=== PATIENT | female | born 1980 | race Caucasian/White ===

== ENCOUNTER 2020-02-13 05:36 | Observation (INO) ==
--- NOTE | 2020-01-20 10:32 | PAT Medication Instructions ---
Medication Instructions Date of Service January 20, 2020 Home Medications citalopram 40 mg PO QAM levothyroxine 50 mcg PO QAM Take morning of surgery With a small sip of water, OTHERWISE NOTHING TO EAT OR DRINK AFTER MIDNIGHT: citalopram 40 mg PO QAM levothyroxine 50 mcg PO QAM Other Notes If you have any questions please call us at [phone] or [phone] or [phone] or [phone]
--- NOTE | 2020-01-20 12:33 | Anesthesiology Consultation ---
Date of Service January 20, 2020 Assessment & Plan (1) Encounter for pre-operative examination: COVID Status: As of 01/19 assessment, patient denies travel to endemic area, known exposure/sick contacts, or symptoms of COVID19. Patient instructed that they and their household members must follow strict social distancing guidelines, wear a mask in public and avoid travel for 14 days prior to surgery. Preoperative COVID19 testing to be completed prior to surgery per surgeon's arrangements. Patient made aware to self-isolate as much as possible between COVID testing and surgery. HCG AM DOS Chart Review Chart Review: Acceptable Risk for Surgery and Patient seen in Pre Admission Testing Teaching & Discussion Instructed NPO after midnight before surgery, except medications with 15 cc of water. Medication instructions provided according to the PAT guidelines. History Surgery Operation Date: 02/13/20 11:00 Proposed Procedures p Laparoscopic Hysterectomy, Bilateral Salpingectomy, Cystoscopy, Possible Laparotomy - Orlando Hay MD Height/Weight Height: 5 ft 3 in Weight: 54.5 kg Allergies Allergy/AdvReac Type Severity Reaction Status Date / Time No Known Allergies Allergy Verified 01/14/20 13:23 Medications Home Medications Medication Instructions Recorded Confirmed Last Taken citalopram 40 mg PO QAM 01/14/20 01/14/20 Unknown levothyroxine 50 mcg PO QAM 01/14/20 01/14/20 Unknown Past Medical History Medical History Anxiety History of uterine fibroid Hypothyroidism Menorrhagia Migraine TMJ (temporomandibular joint disorder) Clicking, sore occasionally. Has never locked. Exercise / Class Metabolic Activity 1 > 8 Run/Swim/Ski/Tennis Past Family History Family History Other No family history of adverse response to anesthesia Past Surgical History Surgical History History of section History of D&C x 2 History of esophageal dilatation History of esophagogastroduodenoscopy (EGD) History of tonsillectomy History of tubal ligation Past Anesthesia History No Hx of Anesthesia Complications and No Family Hx of Anesthesia Complications History of PONV No Hx of PONV and No Hx of Motion Sickness Social History Smoking Status: Former smoker Do You Dip or Chew Tobacco: No Smoking End Date: 01/2017 Hx Alcohol Use: No Hx Substance Use: No substance use type: does not use Review of Systems Pt denies any recent chest pain, shortness of breath, palpitations, cough, fever, URI, or uncontrolled acid reflux. Physical Exam Vital Signs BP: 116/69 P: 61bpm SPO2: 100% RA T: 98.5 F R: 12 ENMT Mouth: + dentures (partial upper); no chipped teeth and no loose teeth Thyromental Distance: < 3.5 Finger Breadths (3) Mallampati Class: I Neck normal visual inspection; neck extension not limited Respiratory normal respiratory effort Auscultation: lungs clear to auscultation bilaterally Cardiovascular Rate/Rhythm: regular rate and regular rhythm Heart Sounds: no murmur Extremities: no edema Testing Laboratory Results 01/20/20 12:34 01/20/20 12:34 Blood Type O Positive 01/20/20 12:34 Antibody Screen NEGATIVE 01/20/20 12:34
[2020-01-20 13:17] LABS: Basophils # (auto) 0.07 K/uL (0-0.2); Basophils % (auto) 1.4 %; Eosinophils # (auto) 0.14 K/uL (0-0.5); Eosinophils % (auto) 2.9 %; Hematocrit (blood only) 36.7 % (37-47); Hemoglobin 11.7 g/dL (12.0-16.0); Immature Granulocytes # (auto) 0.01 K/uL (0.00-0.02); Immature Granulocytes % (auto) 0.2 %; Lymphocytes # (auto) 1.45 K/uL (1.2-3.4); Lymphocytes % (auto) 29.7 %; Mean Corpuscular Hemoglobin 27.2 pg (25-34); Mean Corpuscular Hgb Conc 31.9 g/dL (32-36); Mean Corpuscular Volume 85.3 fL (80-100); Mean Platelet Volume 9.8 fL (7.4-10.4); Monocytes # (auto) 0.45 K/uL (0.11-0.59); Monocytes % (auto) 9.2 %; Neutrophils # (auto) 2.76 K/uL (1.4-6.5); Neutrophils % (auto) 56.6 %; Platelet Count 336 K/uL (130-400); RDW Coefficient of Variation 14.9 % (11.5-14.5); RDW Standard Deviation 46.3 fL (36.4-46.3); White Blood Count 4.88 K/uL (4.8-10.8)
[2020-01-20 13:45] LABS: Albumin Level 3.7 gm/dl (3.4-5.0); BUN Creatinine Ratio 11.8 (10-20); Calcium 8.5 mg/dl (8.5-10.1); Creatinine Clr Calc Pharmacy 89.3 ml/min; Est GFR (African American) 126.5; Est GFR (Non-African American) 109.1; Potassium 3.6 mmol/L (3.5-5.1)
[2020-01-20 13:47] LABS: Bilirubin,Total 0.7 mg/dl (0.2-1); Globulin 3.6 gm/dl (2.5-4.0); Total Protein 7.3 gm/dl (6.4-8.2)
--- OUTSIDE RECORDS SUMMARY | 2020-02-13 05:39 | External Medical Summary | Continuity of Care Document ---
:1980 Author Name Tram Limon Address Unavailable Unavailable , Care Team Providers Name Role Phone Unavailable Unavailable Unavailable Chris Ferguson M.D. Unavailable [email or web address] ROLANDO Limon, S Unavailable Unavailable Unavailable Unavailable Unavailable Problems Classic migraine with aura (346.00) (G43.109) Asthmatic bronchitis (493.90) (J45.909) Depression with anxiety (300.4) (F41.8) Allergies and Adverse Reactions No Known Drug Allergies (Allergy) Medications Xopenex HFA 45 MCG/ACT Inhalation Aeroso l; INHALE 2 PUFFS EVERY 4 HOURS NEEDED , M.D. 15 GM Inhaler Quantity: 1 Refills: 11 Imitrex Braxton JENSEN Refills: 0 Asmanex (30 Metered Doses) 110 MCG/INH I nhalation Aerosol Powder Breath Activated; INHALE 2 PUFFS Daily Braxton Ferguson Start: 03-Feb-2013 Quantity: 2 1 EA Inhaler Refills: 11 Procedures Procedures not documented Immunizations Immunizations not documented Social History - Smoking Status Ex-smoker Plan of Treatment Planned Observations Planned Goals not documented Results No Known Results Results not documented
[2020-02-13] MEDS ORDERED: LACTATED RINGER'S 1,000 ML IV SCH ×2 (06:00→11:30)
[2020-02-13] MEDS ORDERED: LR 15ML/HR IV SCH (06:00)
[2020-02-13] MEDS ORDERED: CEFAZOLIN 2000MG 2,000 MG/15 ML SYR IV SCH (06:00)
[2020-02-13] MEDS ORDERED: ePHEDrine sulfate 50 MG/ML AMP IV PRN (06:34)
[2020-02-13] MEDS ORDERED: fentaNYL citrate 100 MCG/2 ML VIAL IV PRN (06:34)
[2020-02-13] MEDS ORDERED: ATROPINE SULFATE 0.1 MG/ML 10ML SYR IV PRN (06:34)
[2020-02-13] MEDS ORDERED: ONDANSETRON INJ 2 MG/ML 2 ML VIAL IV PRN ×2 (06:34→11:22)
[2020-02-13] MEDS ORDERED: ROCURONIUM BROMIDE 10 MG/ML 5 ML VIAL IV ONE (06:41)
[2020-02-13] MEDS ORDERED: MIDAZOLAM HCL 1 MG/ML 2ML VIAL ONE (06:41)
[2020-02-13] MEDS ORDERED: PROPOFOL IV EMULSION 10 MG/ML 20 ML VIAL IV ONE (06:41)
[2020-02-13] MEDS ORDERED: ONDANSETRON INJ 2 MG/ML 2 ML VIAL ONE (06:41)
[2020-02-13] MEDS ORDERED: LIDOCAINE HCL 2% 2 ML VIAL/AMP(20MG/ML) INFIL ONE (06:41)
[2020-02-13] MEDS ORDERED: fentaNYL citrate 100 MCG/2 ML VIAL ONE ×2 (06:42→08:21)
--- NOTE | 2020-02-13 06:50 | History & Physical Bridge Note ---
Date of Service February 13, 2020 History & Physical Bridge Note I have examined the patient, reviewed the History & Physical and in the interval since the performance of the History & Physical I have noted the following changes of clinical significance: no changes noted
[2020-02-13] MEDS ORDERED: BUPIVACAINE 0.5 % 5 MG/1 ML MPF 30ML VIAL ONE (06:58)
[2020-02-13] MEDS ORDERED: DEXAMETHASONE SOD INJ 4 MG/ML VIAL ONE (07:40)
[2020-02-13] MEDS ORDERED: NEOSTIGMINE METHYLSULFATE 5 MG/5 ML SYR ONE (07:51)
[2020-02-13] MEDS ORDERED: GLYCOPYRROLATE 0.2 MG/ML VIAL ONE (07:51)
--- NOTE | 2020-02-13 08:41 | Operative Report ---
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 Upon arrival, appropriate antibiotics and anesthesia were administered and the patient was placed in dorsal lithotomy position and prepped and draped in sterile fashion. To begin the case we passed a 22 Georgian cystoscope with 30 degree lens. Inspection revealed healthy appearing bladder mucosa. We immediately identified the left ureteral orifice as well as the right ureteral orifice. Just in front of the right ureteral orifice there was a mounded amount of tissue and a slight divot raising the question of a possible complete duplication of the right ureter. We first intubated the easily identified right ureter and advanced a ureteral catheter to 20 cm. We then left that in place and placed a similar catheter on the left-hand side. We then turned our attention back to this extra digit on the right side. I was able to successfully intubated with a sensor wire and a 5 Georgian open-ended catheter and again position this catheter to 20 cm. 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 A Smiley catheter was placed and all the catheters were secured together utilizing an umbilical tape and a Meeks urinary diversion kit. The patient was straight stable to proceed with the planned laparoscopy. I attest to the content of the Intraoperative Record and any orders documented therein. Any exceptions are noted below.
[2020-02-13] MEDS ORDERED: FLOSEAL HEMOSTATIC MATRIX 10ML TOP ONE (09:27)
--- NOTE | 2020-02-13 11:25 | Post Operative Brief Note ---
Immediate Post Op Note v1 Date of Surgery February 13, 2020 Pre & Post Diagnosis Operation Date: 02/13/20 07:00 Pre-Op Diagnosis: Fibroid Uterus,Menorrhagia, Failed Endometrial Ablation Post-Op Diagnosis: Fibroid Uterus,Menorrhagia, Failed Endometrial Ablation I identified the patient and participated in the time-out.: Yes Procedure Operation Date: 02/13/20 07:00 Actual Procedures p Cystoscopy, Bilateral Stent Insertion (Bilateral) - Carlos Alberto Carrasco MD s Laparoscopic Hysterectomy, Bilateral Salphingectomy, Cystoscopy(Not Applicable) - Orlando Hay MD Surgeon Orlando Hay MD Bible Teacher none Estimated Blood Loss 50 Findings Consistent with Post-Op Diagnosis Drains Smiley Catheter
--- NOTE | 2020-02-13 12:12 | Anesthesiology Progress Note ---
Date of Service February 13, 2020 Anesthesia Post Procedure Vital Signs Vital Signs: Temp Pulse Pulse Resp BP Pulse Ox 02/13/20 11:35 78 16 101/55 L 99 02/13/20 11:25 97.7 F 89 15 102/51 L 100 02/13/20 11:15 87 14 108/53 L 99 02/13/20 11:05 75 15 102/41 L 100 02/13/20 10:56 97.0 F L 108 H 16 110/58 L 100 02/13/20 06:09 98.2 F 60 20 119/69 94 Transfer of Care Handoff Completed per policy Notes Mental Status: alert / awake / arousable and participated in evaluation Patient Amnestic to Procedure: Yes Nausea / Vomiting: adequately controlled Pain: adequately controlled Airway Patency, RR, SpO2: stable & adequate BP & HR: stable & adequate Hydration State: stable & adequate Anesthetic Complications: no major complications apparent and Pt Satisfied with anesthetic care
[2020-02-13] MEDS: IBUPROFEN 600 MG TAB PO PRN ×3 (12:14→23:24)
[2020-02-13] MEDS: OXYCODONE/ACETAMINOPHEN 5mg/325mg TAB PO PRN ×3 (12:15→23:23)
[2020-02-14] MEDS: OXYCODONE/ACETAMINOPHEN 5mg/325mg TAB PO PRN ×3 (04:05→12:30)
[2020-02-14] MEDS: IBUPROFEN 600 MG TAB PO PRN ×3 (04:05→12:30)
[2020-02-14] MEDS ORDERED: OXYMETAZOLINE 0.05% 30 ML BTL ONE (07:16)
[2020-02-14 10:23] LABS: Basophils # (auto) 0.03 K/uL (0-0.2); Basophils % (auto) 0.5 %; Eosinophils # (auto) 0.13 K/uL (0-0.5); Eosinophils % (auto) 2.2 %; Hematocrit (blood only) 30.5 % (37-47); Hemoglobin 9.6 g/dL (12.0-16.0); Immature Granulocytes # (auto) 0.01 K/uL (0.00-0.02); Immature Granulocytes % (auto) 0.2 %; Lymphocytes # (auto) 1.33 K/uL (1.2-3.4); Lymphocytes % (auto) 22.6 %; Mean Corpuscular Hemoglobin 28.1 pg (25-34); Mean Corpuscular Volume 89.2 fL (80-100); Mean Platelet Volume 9.8 fL (7.4-10.4); Monocytes # (auto) 0.55 K/uL (0.11-0.59); Monocytes % (auto) 9.3 %; Neutrophils # (auto) 3.84 K/uL (1.4-6.5); Neutrophils % (auto) 65.2 %; Platelet Count 259 K/uL (130-400); RDW Coefficient of Variation 16.3 % (11.5-14.5); RDW Standard Deviation 53.8 fL (36.4-46.3); Red Blood Count 3.42 M/uL (4.2-5.4); White Blood Count 5.89 K/uL (4.8-10.8)
[2020-02-14 10:40] LABS: Albumin Level 2.6 gm/dl (3.4-5.0); BUN Creatinine Ratio 10.3 (10-20); Calcium 7.5 mg/dl (8.5-10.1); Creatinine Clr Calc Pharmacy 85.6 ml/min; Est GFR (African American) 120.2; Est GFR (Non-African American) 103.7; Potassium 3.6 mmol/L (3.5-5.1)
[2020-02-14 10:42] LABS: Mean Corpuscular Hgb Conc 31.5 g/dL (32-36)
[2020-02-14 10:43] LABS: Albumin Globulin Ratio 0.9 (0.9-2); Bilirubin,Total 0.4 mg/dl (0.2-1); Total Protein 5.6 gm/dl (6.4-8.2)
--- NOTE | 2020-02-14 11:38 | Gynecologic Progress Note ---
Date of Service February 14, 2020 Assessment & Plan Admission and Anticipated Discharge Date Admission Date: February 13, 2020 Subjective Pt doing well s/p TIP, Bilat stent placement and removal, cystoscopy Day pt doing well d/c home with instructions Results & Data ([facility]) Vital Signs (Past 12 Hours) Vital Signs Temp Pulse Resp BP Pulse Ox 02/14/20 08:50 36.7 C 77 16 102/47 L 98 02/14/20 04:05 37.0 C 88 16 88/54 L 97
--- NOTE | 2020-02-14 15:47 | Operative Report (OR) ---
DATE OF OPERATION: 02/13/2020 INDICATION FOR PROCEDURE: This is a 40-year-old with menorrhagia and fibroid uterus. The patient has had a failed endometrial ablation and is scheduled to undergo total laparoscopic hysterectomy. PREOPERATIVE DIAGNOSES: Fibroid uterus, failed endometrial ablation. POSTOPERATIVE DIAGNOSES: Fibroid uterus, failed endometrial ablation. PROCEDURE: 1. Cystoscopy with bilateral stent placement by Dr. Barksdale. He will dictate his part of the procedure. 2. Total laparoscopic hysterectomy with bilateral salpingectomy and cystoscopy. SURGEON: Orlando Hay MD. SLAB INSTALLER: ALEKSANDAR Sharif. ATTESTATION FOR SLAB INSTALLER: Vegetable Sorter's presence was necessary throughout the procedure for uterine manipulation and retraction, handling of the laparoscope and laparoscopic instruments to ensure adequate visualization and gentle tissue manipulation and hemostasis. ESTIMATED BLOOD LOSS: 50 mL. IV FLUIDS: 1300 mL URINE OUTPUT: 50 mL clear urine at end of procedure. COMPLICATIONS: None. DRAINS: Smiley catheter. PATHOLOGY: Uterus and cervix. ANESTHESIA: General. FINDINGS: Normal female escutcheon. No lesions in the vagina or cervix. Cystoscopy showed the patient had 2 ureters on the left duplicating system and 1 ureter on the right. Bladder otherwise was unremarkable. Abdominal findings about 8 weeks' size uterus, both ovaries appeared grossly normal. The patient had history of prior section and had blood adherent to the anterior part of the uterus. Bowels were otherwise unremarkable. Rest of the pelvic exam were unremarkable. Both left and right fallopian tube could be identified. The patient had prior tubal ligation. This was also evident, but both fimbriated ends were easily identified. Both ovaries were also identified. Bowel cecum and appendix otherwise appeared grossly normal. There were no other adhesions of the bowel and the abdomen. As stated earlier, except for the thickened adhesions of the bladder to the anterior part of the uterus, the pelvis was otherwise unremarkable. The patient was taken to the operating room where she was prepped and draped in normal sterile fashion in dorsal lithotomy position. Urology had earlier placed stents into the patient's bladder, with the Smiley catheter. A weighted speculum was placed into the vagina. Inman retractor was used to retract the anterior part of the cervix. HUMI uterine manipulator was placed into the uterus size was 3.5. This was placed without difficulty. Attention was paid to the abdominal part of the procedure where an infraumbilical incision was made with scalpel. Dash's were used to identify the fascia and grabbed. Veress needle was introduced into the abdomen at a 45-degree angle while tenting up the abdomen. Intraabdominal placement was confirmed with a water-filled syringe. The abdomen was insufflated with 3.5 liters of CO2. Veress needle was removed. A size 10 trocar was placed into the abdomen with a laparoscope. This was a nonbladed trocar that was placed under direct visualization. Once inside the abdomen, laparoscope was repositioned. Three accessory ports were placed, 2 on the left side of the patient and the third on the right. These were all done under direct visualization. The patient was placed in Trendelenburg position. Bowel was moved out of the operating pelvis. A 5 mm LigaSure was passed through the left accessory port. The uterus was retroverted and at 5 o'clock position traction was provided by the technology assistant. The left fallopian tube was identified again and grabbed about 4 cm from the cornua of the uterus with the LigaSure and transected. This was followed by opening of the left anterior leaf of the broad ligament. Once that was performed it allowed for fenestration of the posterior leaf of the broad ligament to mid section of the left fallopian tube, uteroovarian and medial ovarian pedicles were transected as well using the LigaSure. There was good hemostasis. Same procedure was performed on the contralateral side on the right. The anterior broad ligament dissection was carried to the mid section of the vesicouterine peritoneum with the bladder using the Harmonic scalpel. Same procedure was carried out from the contralateral side. The posterior broad ligament peritoneum was carefully dissected also from both sides of the uterosacral arch in order to displace the ureters laterally. Using traction and countertraction, the Maryland retractor and irrigation probe was used to further dissect the bladder off the lower segment of the uterus. The bladder pillars and pubovesical fascia were carefully dissected as well. The Harmonic scalpel was used to obtain hemostasis when needed. Uterine manipulator could not be palpated over the vaginal tissue. The right uterine pedicle was skeletonized and coagulated with LigaSure. There was good hemostasis. Same procedure was performed on the contralateral side. The cardinal ligaments identified and transected on both sides. Once again, hemostasis was obtained. Colpotomy was then performed using the Harmonic scalpel from both sides. Uterus was removed through the vagina while still attached to the uterine manipulator. The bulb attached to the uterine manipulator was reinserted into the vagina to establish pneumoperitoneum. With the grasper, the remaining section of the left fallopian tube and ovary inspected and identified. There was good hemostasis. The fallopian tube was carefully dissected of the infundibulopelvic using the LigaSure. Same procedure was performed on the contralateral side. An EndoStitch suture closing device was passed through the 10 mm port on the left side and using the Maryland grasper for retraction. The colpotomy closure was performed. The uterosacral ligaments incorporated into the closure in order to decrease the risks of prolapse, Lapra-Ty were used with the EndoStitch. Copious amount of irrigation was used to irrigate the abdomen and pelvis. Attention was paid to the cystoscopy part of the procedure where a 30-degree cystoscope was introduced into the bladder. All 3 stents removed. All 3 ureteral orifices were identified and urine was seen jetting out of the urethra openings. The cystoscope was removed and a Smiley catheter was placed into the patient's bladder. The abdominal side incisions were closed, the 10 mm ports were closed, first by using a Vicryl stitch to close the fascia. The 5 mm ports, however, closed with 4-0 Monocryl in the skin. All instruments were counted for and removed from the abdomen and vagina x2. The patient was sent to recovery in stable condition. I attest to the content of the Intraoperative Record and any orders documented therein. Any exception s are noted below.
--- NOTE | 2020-02-28 00:35 | Discharge Summary (DS) ---
CHIEF COMPLAINT/ADMITTING DIAGNOSES: 1. Menorrhagia. 2. Fibroid uterus. HISTORY OF PRESENT ILLNESS: This is a 40-year-old G2, P2 with menorrhagia and fibroid uterus. The patient underwent total laparoscopic hysterectomy, bilateral salpingectomy with ureteral stent at [facility] on 02/13/2020. Surgery was unremarkable. The patient did well, met all milestones in recovery. She was discharged home the next day in stable condition. PAST MEDICAL HISTORY: History of anxiety, fibroid uterus and menorrhagia. SOCIAL HISTORY: The patient is , lives with spouse and children. PAST SURGICAL HISTORY: The patient has had sections and D&Cs as well as tonsillectomy and 2 ablations in the past. ALLERGIES: No known drug allergies. REVIEW OF SYSTEMS: Is unremarkable, except as dictated above. LABS: At time of discharge, hemoglobin is 9.6, hematocrit is 30.0, platelets is 259. PHYSICAL EXAMINATION: VITAL SIGNS: On day of discharge, temperature was 37.5, pulse was 92, blood pressure is 102/47. HEART: S1, S2, regular rhythm and rate. LUNGS: Clear to auscultation bilaterally. ABDOMEN: Nontender, nondistended. Incision is clean, dry and intact. EXTREMITIES: No cyanosis, clubbing or edema. CONDITION ON DISCHARGE: Stable. OPERATION: Total laparoscopic hysterectomy with bilateral salpingectomy, cystoscopy, bilateral stent placement. DISCHARGE DIAGNOSES: Postop for total laparoscopic hysterectomy with cystoscopy and bilateral stent placement. PLAN ON DISCHARGE: The patient is discharged home with instructions regarding activity, diet and followup appointment.
== END 2020-02-14 13:03 | disposition home or self-care (01) ==
LOC: 4N 05:36 → ASU 05:36 → MERGE 11:00

== ENCOUNTER 2020-02-25 12:23 | Inpatient (IN) ==
[2020-02-25] MEDS ORDERED: Nursing to Pharmacy Communication SCH (15:00)
[2020-02-25] MEDS ORDERED: KETOROLAC TROMETHAMINE 15 MG/ML VIAL IV PRN (15:15)
[2020-02-25] MEDS ORDERED: ACETAMINOPHEN 325 MG TAB PO PRN (15:15)
[2020-02-25 15:54] LABS: Basophils # (auto) 0.04 K/uL (0-0.2); Basophils % (auto) 0.3 %; Eosinophils # (auto) 0.22 K/uL (0-0.5); Eosinophils % (auto) 1.7 %; Hematocrit (blood only) 32.7 % (37-47); Hemoglobin 10.9 g/dL (12.0-16.0); Immature Granulocytes # (auto) 0.02 K/uL (0.00-0.02); Immature Granulocytes % (auto) 0.2 %; Lymphocytes # (auto) 1.32 K/uL (1.2-3.4); Lymphocytes % (auto) 10.1 %; Mean Corpuscular Volume 84.1 fL (80-100); Mean Platelet Volume 9.3 fL (7.4-10.4); Monocytes % (auto) 5.4 %; Neutrophils # (auto) 10.75 K/uL (1.4-6.5); Neutrophils % (auto) 82.3 %; Platelet Count 409 K/uL (130-400); RDW Coefficient of Variation 15.2 % (11.5-14.5); RDW Standard Deviation 46.9 fL (36.4-46.3); Red Blood Count 3.89 M/uL (4.2-5.4); White Blood Count 13.05 K/uL (4.8-10.8)
[2020-02-25 15:56] LABS: Mean Corpuscular Hgb Conc 33.3 g/dL (32-36)
[2020-02-25] MEDS: SODIUM CHLORIDE 0.9% 1000ML 1,000 ML IV SCH (16:06)
[2020-02-25 16:17] LABS: BUN Creatinine Ratio 18.9 (10-20); Calcium 8.8 mg/dl (8.5-10.1); Creatinine Clr Calc Pharmacy 104.1 ml/min; Est GFR (African American) 133.1; Est GFR (Non-African American) 114.8; Potassium 3.7 mmol/L (3.5-5.1)
--- NOTE | 2020-02-25 16:27 | History & Physical Report ---
Date of Service February 25, 2020 Assessment & Plan (1) Vaginal cuff cellulitis: 40 yo with post-operative pain. s/p TLH/BS/Intraoperative urethral stents/Cystoscopy on 02/13/[address] Hay. Possible vaginal cuff cellulitis vs post-hysterectomy pelvic abscess. Admit to L&D. Labs, CT Abd/Pelvis, IVF, IV antibiotics and pain medication ordered. Present on Admission?: Yes Admission and Anticipated Discharge Date Admission Date: February 25, 2020 History of Present Illness Chief Complaint: Post-operative pain Primary Care Provider: Varun Smiley MD The patient is a 40 year old who presented today in [facility] with acute post-operative pain. The patient is s/p a total laparoscopic hysterectomy, bilateral salpingectomy and cystoscopy on 02/13/[address] Hay. Intraoperative urethral stents were also placed by Dr. Carrasco. The patient states that three days ago she started having severe, sharp abdominal pain with radiation to the back. Pain is suprapubic and constant. Pain with ever y position. Pain is sharp. Pain is taking 2 motrin daily with no relief of symptoms. Patient also endorses a ramos vaginal discharge. Denies vaginal odor or vaginal itching. Endorses dysuria. Denies urinary urgency, urinary frequency, or urinary incontinence. Endorses pain with defecation (last bowel movement this morning). +Nausea. Denies vomiting. Patient reports feeling feverish yesterday, but no elevated temperature recorded today in [facility]. Denies SOB or CP. Allergies Allergy/AdvReac Type Severity Reaction Status Date / Time No Known Allergies Allergy Verified 02/13/20 06:03 Home Medications Home Medications Medication Instructions Recorded Confirmed Type citalopram [Celexa] 40 mg PO QAM 01/14/20 02/13/20 History levothyroxine 50 mcg PO QAM 01/14/20 02/13/20 History ibuprofen 600 mg PO Q4H #20 tab 02/14/20 Rx oxycodone-acetaminophen [Percocet] 1 - 2 tab PO Q4H #20 tab 02/14/20 Rx Patient History Medical History (Updated 02/25/20 @ 16:24 by Tika Lester) Anxiety History of uterine fibroid Hypothyroidism Menorrhagia Migraine Spontaneous pneumothorax TMJ (temporomandibular joint disorder) Clicking, sore occasionally. Has never locked. Surgical History History of section History of D&C x 2 History of esophageal dilatation History of esophagogastroduodenoscopy (EGD) History of tonsillectomy History of tubal ligation Family History Other No family history of adverse response to anesthesia Social History (System 01/12/20 @ 08:23 by Tasha Gee) Smoking Status: Never smoker Second Hand Exposure: No; Do You Dip or Chew Tobacco: No; Hx Alcohol Use: No Hx Substance Use: No Preferred Language: Chadian Communication Ability: Effective Can Cutter Required: No Beliefs That Will Affect Care: None Current Living Situation: Spouse and Family Other Information That Helps Us Care for You: No Feels Safe at Home: Yes Safety Concerns: Feels Safe At This Time Review of Systems All systems reviewed & are unremarkable except as noted in HPI & below Physical Exam Constitutional: WD/WN, vitals as above + acute distress Respiratory: normal respiratory effort, lungs clear to auscultation Cardiovascular: RRR, no murmur, no edema Gastrointestinal (Abdomen): Inspection/Auscultation: normal bowel sounds Pe rcussion/Palpation: + abdomen tender, + guarding and abdomen soft Musculoskeletal: no cyanosis or clubbing, extremities motor strength 5/5 Genitourinary: Pelvic Exam: External- normal anatomy. Vagina-pink and rugated and queen appearing vaginal discharge, no odor. Vaginal cuff intact with granulation tissue. Silver nitrate applied. No palpable or visible sutures. Tender to palpation. Cervix- surgically absent. Uterus-surgically absent. Adnexa-tender bilaterally. Rectal-deferred. Results & Data ([facility]) Vital Signs (Past 12 Hours) Vital Signs Temp Pulse Resp BP 02/25/20 15:41 37.5 C 92 H 16 108/73
[2020-02-25 16:33] LABS: Appearance Urine Clear (Clear); Bacteria Urine Automated Negative (Negative); Bilirubin Urine Negative (Negative); Blood Urine Trace (Negative); Color Urine Yellow; Glucose Urine UA Negative (Negative); Ketones Urine Negative (Negative); Leukocyte Esterase Urine Negative (Negative); Nitrite Urine Negative (Negative); Protein Urine Negative (Negative); Specific Gravity Urine 1.016 (1.000-1.030); Urobilinogen Urine Negative (Negative)
[2020-02-25] MEDS ORDERED: IOVERSOL 100ml IV ONE (16:50)
--- NOTE | 2020-02-25 17:05 | CT Scan Report ---
ABDOMEN AND PELVIS CT WITH IV CONTRAST CT DOSE: 255.89 mGy.cm HISTORY: Acute generalized abdominal pelvic pain with prior hysterectomy Postoperative Pain TECHNIQUE: Multiaxial CT images of the abdomen and pelvis were performed following the IV administrat ion of 89 cc of Optiray 320, A dose lowering technique was utilized adhering to the principles of AL MELA. COMPARISON STUDY: Chest CT 11/25/2012 FINDINGS: Lung bases are clear. There is no pneumatosis or pneumoperitoneum identified. The imaged inferior car diac chambers are unremarkable. The spleen, pancreas, adrenal glands and gallbladder appear unremarka ble. 7 mm hypodensity of the inferior right hepatic lobe suggests probable cyst. Liver is otherwise u nremarkable. See of the hepatic and portal veins. The kidneys are unremarkable. Partially decompressed urinary bladder. There is a small volume of free fluid within the pelvis. Stranding within the pelvis is also noted with areas of peritoneal enhancem ent. Hysterectomy. There is a peripherally enhancing 5.1 x 3.2 cm fluid collection within the left he mipelvis, image 296 series 3 with an additional 3.9 x 2.5 cm fluid collection on the left, image 310 series 3. Follicular changes of the right ovary. Patency of the hepatic and portal veins aorta and IV C are unremarkable. No bowel obstruction. Decompressed rectum and sigmoid with mild wall thickening. No opaque foreign amanda dy. Visualized appendix is unremarkable. Soft tissues are within normal limits. Mild levoscoliosis of the lumbosacral junction. The bones appear intact. IMPRESSION: 1. Hysterectomy. Mild degree of complex free fluid within the pelvis is noted with mild associated pe ritoneal enhancement. Additionally, there are two peripherally enhancing fluid collections of the lef t hemipelvis measuring up to 5.1 cm suspicious for abscesses. 2. No bowel obstruction or bowel wall thickening. Normal appendix. 3. No pneumatosis. ACT 112: Negative or not required by law. The above report was generated using voice recognition software. It may contain grammatical, syntax o r spelling errors. Electronically signed by: Kermit Soto M.D. 02/25/2020 5:03 PM
[2020-02-25] MEDS ORDERED: PIPERACILL/TAZOBAC CONSULT ACTIVE PRN (17:20)
[2020-02-25] MEDS ORDERED: PIPERACILLIN/TAZOBACTAM 3.375 GM in DEXTROSE 5% 100 ML IV ONE (17:30)
[2020-02-25] MEDS: OXYCODONE/ACETAMINOPHEN 5mg/325mg TAB PO PRN (19:22)
--- NOTE | 2020-02-25 20:27 | Gynecologic Progress Note ---
Date of Service February 25, 2020 Assessment & Plan Admission and Anticipated Discharge Date Admission Date: February 25, 2020 Subjective Pt admitted for abdominal pain and dysuria s/p TLH and Ureteral stent Tolerating PO food and Meds Afebrile On Zosyn IV Labs show elevated WBC CT shows 5 X 3 cm pelvic abscess. No ileus Plan Antibx x 24 hrs, then consider transvaginal abscess drainage Results & Data ([facility]) Vital Signs (Past 12 Hours) Vital Signs Temp Pulse Resp BP Pulse Ox 02/25/20 19:15 37.1 C 89 18 92/55 L 98 02/25/20 15:41 37.5 C 92 H 16 108/73
[2020-02-25] MEDS: DOCUSATE SODIUM 100 MG CAP PO SCH (20:42)
[2020-02-25] MEDS ORDERED: DOCUSATE SODIUM 100 MG CAP PO SCH (21:00)
[2020-02-25] MEDS: PIPERACILLIN/TAZOBACTAM 3.375 GM in DEXTROSE 5% 100 ML IV SCH (22:09)
[2020-02-26] MEDS: OXYCODONE/ACETAMINOPHEN 5mg/325mg TAB PO PRN ×2 (04:53→12:06)
[2020-02-26] MEDS: SODIUM CHLORIDE 0.9% 1000ML 1,000 ML IV SCH ×2 (04:53→20:43)
[2020-02-26] MEDS: PIPERACILLIN/TAZOBACTAM 3.375 GM in DEXTROSE 5% 100 ML IV SCH ×3 (04:53→22:04)
[2020-02-26] MEDS: DOCUSATE SODIUM 100 MG CAP PO SCH ×2 (08:59→20:44)
[2020-02-26 10:51] LABS: Basophils # (auto) 0.04 K/uL (0-0.2); Basophils % (auto) 0.4 %; Eosinophils # (auto) 0.28 K/uL (0-0.5); Eosinophils % (auto) 2.9 %; Hematocrit (blood only) 28.5 % (37-47); Hemoglobin 9.3 g/dL (12.0-16.0); Immature Granulocytes # (auto) 0.03 K/uL (0.00-0.02); Immature Granulocytes % (auto) 0.3 %; Lymphocytes # (auto) 1.36 K/uL (1.2-3.4); Lymphocytes % (auto) 14.2 %; Mean Corpuscular Hemoglobin 27.9 pg (25-34); Mean Corpuscular Volume 85.6 fL (80-100); Mean Platelet Volume 8.6 fL (7.4-10.4); Monocytes # (auto) 0.81 K/uL (0.11-0.59); Monocytes % (auto) 8.4 %; Neutrophils # (auto) 7.08 K/uL (1.4-6.5); Neutrophils % (auto) 73.8 %; Platelet Count 338 K/uL (130-400); RDW Coefficient of Variation 15.1 % (11.5-14.5); RDW Standard Deviation 47.9 fL (36.4-46.3); Red Blood Count 3.33 M/uL (4.2-5.4)
[2020-02-26 10:54] LABS: Mean Corpuscular Hgb Conc 32.6 g/dL (32-36)
--- NOTE | 2020-02-26 11:07 | Gynecologic Progress Note ---
Date of Service February 26, 2020 Assessment & Plan Admission and Anticipated Discharge Date Admission Date: February 25, 2020 Subjective Hospital Day#2 feeling better than yesterday ambulating to bathroom pain improving tolerating diet Physical Exam Constitutional: WD/WN, vitals as above comfortable incisions are well healed without drainage or redness abdomen is soft but slightly tender no rebound or guarding no edema neg Colton's CBC with decreasing WBC noted cultures pending continue IV antibiotics for cuff abscess Results & Data ([facility]) Vital Signs (Past 12 Hours) Vital Signs Temp Pulse Resp BP Pulse Ox 02/26/20 08:00 36.6 C 70 18 101/81 97 02/26/20 01:17 36.6 C 80 16 88/56 L 99 Laboratory Results Laboratory Results - last 72 hr 02/25/20 02/25/20 02/25/20 15:32 15:32 16:15 WBC 13.05 H RBC 3.89 L Hgb 10.9 L Hct 32.7 L MCV 84.1 MCH 28.0 MCHC 33.3 RDW Std Deviation 46.9 H RDW Coeff of Trang 15.2 H Plt Count 409 H MPV 9.3 Immature Gran % (Auto) 0.2 Neut % (Auto) 82.3 Lymph % (Auto) 10.1 [place] % (Auto) 5.4 Eos % (Auto) 1.7 Baso % (Auto) 0.3 Neut # (Auto) 10.75 H Lymph # (Auto) 1.32 [place] # (Auto) 0.70 H Eos # (Auto) 0.22 Baso # (Auto) 0.04 Immature Gran # (Auto) 0.02 Sodium 137 Potassium 3.7 Chloride 105 Carbon Dioxide 23 Anion Gap 9.0 BUN 11 Creatinine 0.60 Est Cr Clr Drug Dosing 104.1 Est GFR ( Amer) 133.1 Est GFR (Non-Af Amer) 114.8 BUN/Creatinine Ratio 18.9 Glucose 88 Calcium 8.8 Urine Color Yellow Urine Appearance Clear Urine pH 6.0 Ur Specific [place] 1.016 Urine Protein Negative Urine Glucose (UA) Negative Urine Ketones Negative Urine Blood Trace H Urine Nitrite Negative Urine Bilirubin Negative Urine Urobilinogen Negative Ur Leukocyte Esterase Negative Urine WBC (Auto) 1-5 Urine RBC (Auto) 5-10 H U Hyaline Cast (Auto) 1-5 U Epithel Cells (Auto) 10-20 H Urine Bacteria (Auto) Negative 02/26/20 10:40 WBC 9.60 RBC 3.33 L Hgb 9.3 L Hct 28.5 L MCV 85.6 MCH 27.9 MCHC 32.6 RDW Std Deviation 47.9 H RDW Coeff of Trang 15.1 H Plt Count 338 MPV 8.6 Immature Gran % (Auto) 0.3 Neut % (Auto) 73.8 Lymph % (Auto) 14.2 [place]anan % (Auto) 8.4 Eos % (Auto) 2.9 Baso % (Auto) 0.4 Neut # (Auto) 7.08 H Lymph # (Auto) 1.36 [place] # (Auto) 0.81 H Eos # (Auto) 0.28 Baso # (Auto) 0.04 Immature Gran # (Auto) 0.03 H Sodium Potassium Chloride Carbon Dioxide Anion Gap BUN Creatinine Est Cr Clr Drug Dosing Est GFR ( Amer) Est GFR (Non-Af Amer) BUN/Creatinine Ratio Glucose Calcium Urine Color Urine Appearance Urine pH Ur Specific [place] Urine Protein Urine Glucose (UA) Urine Ketones Urine Blood Urine Nitrite Urine Bilirubin Urine Urobilinogen Ur Leukocyte Esterase Urine WBC (Auto) Urine RBC (Auto) U Hyaline Cast (Auto) U Epithel Cells (Auto) Urine Bacteria (Auto)
[2020-02-26] MEDS: ONDANSETRON INJ 2 MG/ML 2 ML VIAL IV PRN ×2 (13:30→22:03)
[2020-02-26] MEDS: IBUPROFEN 600 MG TAB PO PRN (17:40)
--- NOTE | 2020-02-26 19:48 | Gynecologic Progress Note ---
Date of Service February 26, 2020 Assessment & Plan Admission and Anticipated Discharge Date Admission Date: February 25, 2020 Subjective Pt doing well Had one episode of vomiting. Denies nausea Pt requesting advancement of her diet O; VSS Culx; No growth PE; CTA bilat Ht ; S1S2 R/R/R Abd; NT ND + BS improved abdominal discomfort. No guarding or rebound ext; No C/C/e a/p s/p Post hysterectomy pelvic abscess 5x [address] Pt on Zosyn x 24hrs Improved WBC, afebrile advance diet continue Zosyn Results & Data ([facility]) Vital Signs (Past 12 Hours) Vital Signs Temp Pulse Resp BP Pulse Ox 02/26/20 17:00 36.8 C 76 18 90/55 L 99 02/26/20 11:54 36.7 C 69 18 91/57 L 99 02/26/20 08:00 36.6 C 70 18 101/81 97
[2020-02-27 06:01] LABS: Basophils # (auto) 0.05 K/uL (0-0.2); Basophils % (auto) 0.7 %; Eosinophils # (auto) 0.39 K/uL (0-0.5); Eosinophils % (auto) 5.2 %; Hematocrit (blood only) 27.9 % (37-47); Hemoglobin 8.7 g/dL (12.0-16.0); Immature Granulocytes # (auto) 0.02 K/uL (0.00-0.02); Immature Granulocytes % (auto) 0.3 %; Lymphocytes % (auto) 17.2 %; Mean Corpuscular Hemoglobin 26.9 pg (25-34); Mean Corpuscular Hgb Conc 31.2 g/dL (32-36); Mean Corpuscular Volume 86.1 fL (80-100); Mean Platelet Volume 9.2 fL (7.4-10.4); Monocytes # (auto) 0.66 K/uL (0.11-0.59); Monocytes % (auto) 8.7 %; Neutrophils # (auto) 5.14 K/uL (1.4-6.5); Neutrophils % (auto) 67.9 %; Platelet Count 373 K/uL (130-400); RDW Coefficient of Variation 15.1 % (11.5-14.5); RDW Standard Deviation 48.3 fL (36.4-46.3); Red Blood Count 3.24 M/uL (4.2-5.4); White Blood Count 7.56 K/uL (4.8-10.8)
[2020-02-27 06:32] LABS: Albumin Level 2.3 gm/dl (3.4-5.0); BUN Creatinine Ratio 19.7 (10-20); Calcium 8.1 mg/dl (8.5-10.1); Creatinine Clr Calc Pharmacy 97.6 ml/min; Est GFR (African American) 130.3; Est GFR (Non-African American) 112.4; Potassium 3.7 mmol/L (3.5-5.1)
[2020-02-27 06:35] LABS: Albumin Globulin Ratio 0.7 (0.9-2); Bilirubin,Total 0.3 mg/dl (0.2-1); Globulin 3.5 gm/dl (2.5-4.0); Total Protein 5.8 gm/dl (6.4-8.2)
[2020-02-27] MEDS: PIPERACILLIN/TAZOBACTAM 3.375 GM in DEXTROSE 5% 100 ML IV SCH ×2 (06:39→13:59)
[2020-02-27] MEDS: DOCUSATE SODIUM 100 MG CAP PO SCH (08:20)
[2020-02-27] MEDS: IBUPROFEN 600 MG TAB PO PRN ×2 (10:47→19:53)
[2020-02-27] MEDS: SODIUM CHLORIDE 0.9% 1000ML 1,000 ML IV SCH (12:11)
--- NOTE | 2020-02-27 19:51 | Gynecologic Progress Note ---
Date of Service February 27, 2020 Assessment & Plan Admission and Anticipated Discharge Date Admission Date: February 25, 2020 Subjective Pt doing well Improved pain. afebrile. tolerating PO food and med completed 48 hrs of antibx O. VSS No growth in culx Pel; vag. cuff intact. no fluctuance on cuff. Cuff probed with sterile Q tip Plan D/c home with instructions Results & Data ([facility]) Vital Signs (Past 12 Hours) Vital Signs Temp Pulse Resp BP Pulse Ox 02/27/20 15:00 36.7 C 67 18 96/61 L 98 02/27/20 08:20 36.6 C 70 16 109/72 99
--- NOTE | 2020-02-28 00:18 | Discharge Summary (DS) ---
CHIEF COMPLAINT: Postop pain after hysterectomy. HISTORY OF PRESENT ILLNESS: This is a 40-year-old G2, P2 who presented to [facility] at [facility] for acute postoperative pain. The patient had undergone total laparoscopic hysterectomy with bilateral salpingectomy and cystoscopy on 02/13/[address] Hay. Surgery involved intraoperative ureteral stents placed by Dr. Barksdale. Postop was unremarkable. The patient was discharged home in stable condition. However, she began to have abdominal pain with nausea and vomiting. She presented to clinic and was admitted to the hospital where she received 48 hours of Zosyn. Cultures, vaginal cultures and urine cultures as well as blood cultures were obtained. All was unremarkable. CT scan showed a 5 x 3 cm pelvic abscess. The patient is now being discharged home in stable condition. PAST MEDICAL HISTORY: The patient has history of anxiety and uterine fibroids, menorrhagia and migraines as well as hypothyroidism. PAST SURGICAL HISTORY: The patient has had sections, D&Cs as well as tonsillectomy and tubal ligation. SOCIAL HISTORY: The patient is , lives with spouse and 2 children. ALLERGIES: No known drug allergies. SOCIAL HISTORY: Denies smoking, drug, or alcohol use. REVIEW OF SYSTEMS: Negative except as dictated above. PHYSICAL EXAMINATION: GENERAL: Well-developed, well-nourished white female in no acute distress. VITAL SIGNS: Today blood pressure 96/61, pulse is 67, respirations 18, temperature 36.7. HEART: S1, S2, regular rhythm and rate. LUNGS: Clear to auscultation bilaterally. ABDOMEN: Nontender, nondistended, positive bowel sounds. EXTREMITIES: No cyanosis, clubbing or edema. PELVIC: Vaginal cuff is intact and does not appear erythematous, appears grossly normal. Palpation of the vaginal cuff did not show any drainage from the cuff. Labs unremarkable. Today patient's hemoglobin is 8.7, hematocrit is 27.9, white count is 7.5. Platelets 373. CONDITION ON DISCHARGE: Stable. OPERATION: Status post total laparoscopic hysterectomy postop infection. DISCHARGE DIAGNOSIS: Vaginal abscess, status post total laparoscopic hysterectomy. PLAN ON DISCHARGE: The patient is discharged home with instructions regarding activity, diet, followup appointment and medication.
--- NOTE | 2020-03-18 11:23 | Coding Query ---
CODING QUERY To promote full compliance with coding requirements relating to patient care, provider participation is requested in all cases of fsr uncertainty. Please assist us with the question(s) below: Coding Question(s): The Discharge Summary documents, "OPERATION: Status post total laparoscopic hysterectomy postop infection" and, "DISCHARGE DIAGNOSIS: Vaginal abscess, status post total laparoscopic hysterectomy". Please specify below, in your clinical opinion, regarding the Vaginal Abscess. ( X) Vaginal Abscess is a postoperative complication of infection of the hysterectomy procedure ( ) Vaginal Abscess is NOT a postoperative complication of infection ( ) Vaginal Abscess is Other: Please specify Physician's Response(s): Thank you Brittany Gutierrez Principal Diagnosis: "that condition established after study, to be chiefly responsible for occasioning the admission of the patient to the hospital for care." Co-Existing Principal Diagnosis: "when two or more diagnoses equally meet the criteria for principal diagnosis as determined by the circumstances of admission, diagnostic work up, and/or therapy provided, and the Alphabetic Index, Tabular List, or another coding guideline does not provide sequencing direction, any one of the diagnoses may be sequenced first." "When the physician has documented what appears to be a current diagnosis in the body of the record, but has not included the diagnosis in the final diagnostic statement, the physician should be asked whether the diagnosis should be added." ([facility] 2 QTR90. p3-4) RIGOBERTO
== END 2020-02-27 21:05 | disposition home or self-care (01) | DRG 863 ==
LOC: 4S2 14:03